=== PATIENT | male | born 1990 | race Caucasian/White ===

== ENCOUNTER 2019-10-22 12:06 | Emergency (ER) | payer OTHER, SELFPAY ==
--- NOTE | 2019-10-22 12:19 | ED.URI ---
HPI - URI/Sore Throat General Chief Complaint: Upper Respiratory Infection Stated Complaint: Sore Throat Time Seen by Provider: 10/22/19 12:19 Source: patient History of Present Illness HPI Narrative: PATIENT PRESENTS WITH A SORE THROAT FOR THE PAST WEEK. STATES CHILD TESTED POSITIVE FOR STREP THROAT. DENIES ANY OTHER C/O NO TROUBLE SWALLOWING NO DROOLING HAS NOT TAKEN ANYTHING OTC FOR SYMPTOMS. MD elicited complaint: sore throat and nasal congestion Related Data Allergies Allergy/AdvReac Type Severity Reaction Status Date / Time No Known Allergies Allergy Unverified 01/26/18 12:07 Review of Systems Review of Systems: Narrative: CONSTITUTIONAL: Denies fever, chills, or sweats. EYES: Denies visual changes, redness, or discharge. ENT: Denies rhinorrhea, congestion, sore throat, or otalgia. CARDIOVASCULAR: Denies chest pain, palpitations, or edema. RESPIRATORY: Denies cough or dyspnea. GASTROINTESTINAL: Denies abdominal pain, nausea, vomiting, or diarrhea. GENITOURINARY: Denies dysuria or hematuria. SKIN: Denies rash or itching. MUSCULOSKELETAL: Denies back pain, joint pain, or myalgia. NEUROLOGIC: Denies headache, numbness, or weakness. PSYCHIATRIC: Denies anxiety or depression. All systems reviewed & are unremarkable except as noted in HPI and below PMFSH Comments At time of signature, agree with nursing past medical, surgical, social and family history. There is no relevant family history pertinent to the presenting complaint Exam Narrative: Exam Narrative: GENERAL: Well-appearing, well-nourished, and in no acute distress. HEAD: Normocephalic, atraumatic. EYES: PERRLA and EOMI. ENT: Nares clear, no rhinorrhea or epistaxis. Mucous membranes moist. mild pharyngeal erythema no drooling no trismuss can open mouth fully no angioedema mild past nasal drainage NECK: Supple. CHEST: Clear to auscultation. No respiratory distress. HEART: Regular rate and rhythm. No murmur heard. Normal peripheral pulses. ABDOMEN: Soft, nontender, nondistended, normal active bowel sounds. EXTREMITIES: Normal range of motion. No edema. SKIN: Warm, dry, no rash. NEURO: No focal deficits. Alert and oriented x3. Br[place] Coma Scale Eye Opening: Spontaneous 4 [place] Coma Scale Motor: Obeys Commands 6 Thor Coma Scale Verbal: Oriented 5 [place] Coma Scale Total 15 Course Vital Signs Vital signs: Vital Signs Temperature 36.9 C 10/22/19 12:20 Pulse Rate 64 10/22/19 12:20 Respiratory Rate 16 10/22/19 12:20 Blood Pressure 120/70 10/22/19 12:20 Pulse Oximetry 99 10/22/19 12:20 Temperature 36.9 C 10/22/19 12:20 Pulse Rate 64 10/22/19 12:20 Respiratory Rate 16 10/22/19 12:20 Blood Pressure 120/70 10/22/19 12:20 Pulse Oximetry 99 10/22/19 12:20 MDM - URI/Sore Throat Differential Diagnosis Differential diagnosis: Likely upper respiratory infection, otitis media, sinusitis, viral infection, influenza and pharyngitis Lab Data Labs: Strep Screen Presumptive Negative *(Reference Range: Negative)* Critical Care Time Critical Care Time Critical Care Time: No Discharge Plan Discharge Clinical Impression: Post-nasal drip Pharyngitis Qualifiers: Pharyngitis/tonsillitis etiology: streptococcus Qualified Code(s): J02.0 - Streptococcal pharyngitis Patient Disposition: Home, Self-Care Condition: Stable Instructions: Antibiotic Form Additional Instructions: congestion - flonase am and pm for chronic sinus congestion or prolonged symptoms of sinusitis (takes several days to work). one to three times a day of irrigation of sinus with saline spray, ocean nasal spray or gita pot. fluids. if you don't have hypertension-afrin nasal spray with a 3 day limit for immediate relief of sinus congestion. for runny nose: do over the counter antihistamine (claritin, benadryl, zyrtec) for sneezing, runny nose. allergies. sudafed or
[2019-10-22 12:20] VITALS: BP 120/70; PULSE 64; RESP 16; TEMP 36.9; O2SAT 99
== END 2019-10-22 12:40 | disposition home or self-care (01) ==
PROVIDERS: Emergency Provider Nurse Practitioner Family; PCP Internal Medicine
DX: J02.0 Streptococcal pharyngitis (principal); R09.82 Postnasal drip
CPT/HCPCS: 87081; 87880; 99213; G0463